=== PATIENT | female | born 1985 | race Caucasian/White ===

== ENCOUNTER 2016-07-27 10:03 | Day surgery (SDC) | payer OTHER ==
[2016-07-27] VITALS (10 sets, daily range): BP systolic 145–167; BP diastolic 56–67; PULSE 72–100; RESP 16–20; O2SAT 94–96
[~2016-07-27] VITALS: Ht 147.3 cm; Wt 39.8 kg
[~2016-07-27 10:03] MED LIST: CYCL25CA8 PO; HYDR42CR3 TP; LORA10CA PO; Lactated Ringer's 1,000 ML IV ONE; MEDR150D9 IM; METO5TAB78 PO
[2016-07-27] MEDS ORDERED: Dexamethasone 4 mg/mL Inj ONE (10:04)
[2016-07-27] MEDS ORDERED: Ondansetron 2 mg/mL 2 mL Inj ONE (10:04)
[2016-07-27] MEDS ORDERED: Glycopyrrolate 0.2 MG/ML 1mL Inj ONE (10:04)
[2016-07-27] MEDS ORDERED: Neostigmine 1 mg/mL 10 mL Inj ONE (10:04)
[2016-07-27] MEDS ORDERED: fentaNYL-PF 50 mCg/mL 2 mL Inj ONE (10:04)
[2016-07-27] MEDS ORDERED: Propofol 10,000 mCg/mL 20 mL Inj ONE (10:04)
[2016-07-27] MEDS ORDERED: Rocuronium 10 mg/mL 5 mL Inj ONE (10:04)
[2016-07-27] MEDS ORDERED: Lactated Ringer's 1,000 ML IV SCH (10:49)
[2016-07-27] MEDS ORDERED: Lactated Ringer's 500 ML IV PRN (10:49)
--- NOTE | 2016-07-27 10:49 | PCM.HPANE ---
Patient Data Surgeon Admitting Provider: Attending Provider:Too Velásquez MD Primary Care Physician:Leonor Fleming Other Provider:Sima Ferreringham Anesthesia Reason for Visit Desires Sterilization Ht/WT & BMI Height (Feet): 4 Height (Inches): 10 Weight (Kilograms): 39.8 Body Mass Index 18.00 Allergies Coded Allergies: acetaminophen (Verified Allergy, Severe, SWELLING, 07/26/16) Uncoded Allergies: benedryl (Adverse Reaction, Severe, headache, 07/26/16) Past Anesthesia History Anesthesia History: Denies:: Anesthesia Reactions, Malignant Hyperthermia Diabetes History Hx Diabetes?: No MRSA MRSA: No Medications Home Meds Incl Beta Sepideh: No Reported Medications Metoclopramide (Reglan)5 Mg Tablet5 Mg PO TIDAC PRN For Epigastric Distress Ref 0 07/26/16 Loratadine (Claritin)10 Mg [id number] Mg PO DAILY Ref 0 07/26/16 Hydrocortisone (Cortaid)1 % Cream..g.1 Applic TP BID 07/26/16 Medroxyprogesterone Acetate (Depo-Provera)150 Mg/1 Ml [id number] Mg IM q 3 months 07/26/16 Cyclosporine 25 Mg [id number] Mg PO BID 07/26/16 History History of ENT Problems?: No HEENT History: Positive for:: Sinus Problem (SEASONAL ALLERGIES) Denture Type: None Teeth Condition: Within Normal Limits Hx of Heart Problems?: No Cardiovascular History: Denies:: Heart Murmur Hypertension Hx of Respiratory Problem?: Yes Respiratory History: Positive for:: Cough Denies:: Use of C-PAP Machine Hx Neurologic Problems?: Yes Hx of GI Problems?: Yes Other GI Pertinent History: C/OF INTERMITTANT ABD PAIN,NON-INTRACTABLE N&V Hx of Problems?: Yes Genitourinary History: Positive for:: Urinary Tract Infection (HX OF RECURRENT UTI'S) Female Hx: Denies:: Currently Skin History: Positive for:: History Skin Disorders? (HX OF URTICARIA) Denies:: Pressure Ulcers Hx Musculoskeletal Problems?: No Hx of Psycho/Social Problems?: No Hx Surgeries?: Yes (LIVER TRANSPLANT) Hx Any Other Health Problems?: Yes Other History: Denies:: Cancer Endocrine Disease Hospitalization Thyroid Disease Hx Diabetes: No Smoking Status: Unknown if Ever Smoker Stop/Bang Treated for Sleep Apnea?: No Do You Have a CPAP Machine?: No S-Snoring: Do You Snore Loudly: No T-Tired: feel tired, fatigued: Yes O-Obsered: Observed not breath: No P-Blood Pressure: treated: No B- Body Mass Index > 35 kg/m2: No A- Age over 50: No N- Neck Large Circumference: No G- Gender Male: No COLUMBA Total Score: 1 COLUMBA Risk Assessment: Low Risk, <3 Yes Risk Assessment Category Category 1A: Patient has history of documented sleep apnea, and HAS NOT received any narcotic, sedative or anesthesia administration during this stay. Category 1B: Patient has history of documented sleep apnea, and HAS received any narcotic , sedative or anesthesia administration during this stay Category 2: Patient has SUSPECTED Obstructive Sleep Apnea, and HAS received any narcotic , sedative or anesthesia administration during this stay. Category 3: Patient has SUSPECTED Obstructive Sleep Apnea and HAS NOT received narcotic, sedative or anesthesia administration during this stay. Category 4: Outpatient in Procedural Areas with known sleep apnea or who screen positive for High Risk via the STOP/BANG questionnaire. Exam Exam Vital Signs Vital Signs Date Time Temp Pulse Resp B/P Pulse Ox O2 Delivery O2 Flow Rate FiO2 07/27/16 10:28 36.5 87 16 149/63 96 Room Air General Appearance: Oriented X3 HEENT/AIRWAY: MP 1 Lungs: Normal Air Movement Heart: Regular Rate/Rhythm Meds/Labs/Diagnostics Admission Meds Current Medications Lactated Ringer's (Lr) 1,000 ml @ 120 mls/hr Q8H20M ONCE IV Last administered on 07/27/16t 10:27; Start 07/27/16 at 00:59; Stop 07/27/16 at 09:18; Status DC Plan Impression Patient chart reviewed, patient interviewed and anesthestic plan with risks, benefits, and alternatives discussed, and informed consent obtained. ASA Physical Status: ASA2 Mod Systemic Disease Anesthetic Plan: GA Bene/Risks/Altern/Consents: Yes HP Complete Prior to Induction: Yes Jacobo Ayala MD Jul 27, 2016 10:49
[2016-07-27] MEDS ORDERED: Ondansetron 2 mg/mL 2 mL Inj IVPUSH PRN ×2 (10:50→12:25)
[2016-07-27] MEDS ORDERED: EPHEDrine Sulfate 50 mg/mL Inj IVPUSH PRN (10:50)
[2016-07-27] MEDS ORDERED: Dexamethasone 4 mg/mL Inj IVPUSH PRN (10:50)
[2016-07-27] MEDS ORDERED: HYDROmorphone 1 mg/mL Inj IVPUSH PRN ×2 (10:50→12:25)
[2016-07-27] MEDS ORDERED: MetoCLOpramide 5 mg/mL 2 mL Inj IVPUSH PRN (10:50)
[2016-07-27] MEDS ORDERED: fentaNYL-PF 50 mCg/mL 2 mL Inj IVPUSH PRN (10:50)
[2016-07-27] MEDS ORDERED: Phenylephrine 10,000 mCg/mL Inj IVPUSH PRN (10:50)
[2016-07-27] MEDS ORDERED: Silver Nitrate Stick TOPICAL ONE (11:32)
[2016-07-27] MEDS ORDERED: Bupivacaine-MPF 0.5% W/EPI 30 mL Inj INJ ONE (11:32)
[2016-07-27] MEDS ORDERED: Ketorolac 15 mg/mL Inj IVPUSH PRN (12:25)
--- NOTE | 2016-07-27 12:27 | PCM.DIMED ---
Discharge Instructions Date of Service Jul 27, 2016 Dates of Hospitalization Diet No restrictions Activity No restrictions Call your provider Fever or Chills, Shortness of breath, Bleeding, Chest pain, Vomitting, Excessive diarrhea Patient Instructions Follow-up with PCP in: 2 weeks Too Velásquez MD Jul 27, 2016 12:27
--- NOTE | 2016-07-27 13:33 | OP ---
[address] [address] OPERATIVE REPORT PATIENT: MOMO PATEL : 1985 MR#: [id number] ADMIT: 07/27/2016 JOB ID: [id number] DATE OF SURGERY: 07/27/2016 PROCEDURE: Laparoscopic bilateral tubal ligation. PREOPERATIVE DIAGNOSIS(ES): Desires sterilization. POSTOPERATIVE DIAGNOSIS(ES): Desires sterilization. SURGEON: Too Velásquez M.D. SENIOR ACCOUNTING SPECIALIST: None. ANESTHESIA: Dr. Ayala, general anesthesia. ESTIMATED BLOOD LOSS: 2 mL. ESTIMATED URINE OUTPUT: 100 mL. ESTIMATED FLUID: 800 mL of lactated Ringer. COMPLICATIONS: None. FINDINGS: The patient had normal appearance of the uterus and bilateral adnexa seen during laparoscopy. There are multiple adhesions in the upper abdomen between the omentum and anterior abdominal wall obscuring the right upper quadrant probably as a result of prior liver transplant. Perineum, vagina and the cervix look normal. PROCEDURE: The patient was brought to the operating room, where she underwent general anesthesia without difficulty. The patient was placed in a dorsal lithotomy position using Gabriel stirrups. She was prepped and draped in the usual surgical fashion. Time-out was performed verifying correct patient, correct procedure. The Rahman speculum was placed into the vagina. The cervix was identified and a Hulka uterine manipulator was introduced. Attention was then directed to the patient's abdomen where local anesthetic was injected in the paraumbilical area, Veress needle was introduced. CO2 gas was insufflated with appropriate pneumoperitoneum achieved. A 5 mm supraumbilical skin incision was made with a scalpel and a 5 mm trocar was placed through the incision. A 30 degree scope was used for visualization, the abdomen and pelvis were reviewed with the findings mentioned above. Several images were obtained. A second 5 mm trocar skin incision was made in the left lower quadrant 5 mm medially and superiorly from the anterior-superior iliac spine. A 5 mm trocar was placed through the incision. Using ligature instrument, the patient's right fallopian tube was grasped, elevated, ligated in three different places 3 cm away from the cornua of the uterus and 1 cm away from each other. The tube was transected, images were obtained. The same was done on the patient's contralateral side. Good hemostasis was reassured. The instruments were removed. The abdomen was desufflated from the CO2 gas. The trocars were removed. The skin incisions were closed with 4-0 Monocryl in a subcuticular fashion. Dermabond glue was applied. The Hulka uterine manipulator was removed from the vagina. The area of insertion was assured to be hemostatic with the help of silver nitrate sticks. The patient was repositioned back into the supine position. She tolerated the procedure well and was transferred to the recovery room in a stable condition. OCTAVIO
== END 2016-07-27 23:59 | disposition home or self-care (01) ==
LOC: SAS 10:03
PROVIDERS: ATTEND Legal Medicine
DX: Z30.2 Encounter for sterilization (principal); Q44.2 Atresia of bile ducts; K21.9 Gastro-esophageal reflux disease without esophagitis; J30.2 Other seasonal allergic rhinitis; Z87.440 Personal history of urinary (tract) infections; Z94.4 Liver transplant status
CPT/HCPCS: 58670; J1100; J1885; J2405; J2710; J3010; J7120